=== PATIENT | female | born 1940 | race Caucasian/White ===

== ENCOUNTER → 2016-12-20 | Outpatient (CLI) | payer MEDICARE, OTHER ==
[2016-12-20 08:34] LABS: CHLORIDE,CL 109 mmol/L (98-110); SODIUM,NA 143 mmol/L (136-146)
== END ==
LOC: MW.CHIM 07:49
PROVIDERS: ATTEND Internal Medicine
DX: I10 Essential (primary) hypertension (principal)
CPT/HCPCS: 36415; 80053

== ENCOUNTER → 2016-12-24 | Outpatient (CLI) | payer MEDICARE, OTHER | LOC: MW.CHIM 09:30 | PROVIDERS: ATTEND Internal Medicine | DX: I10 Essential (primary) hypertension (principal) | CPT/HCPCS: 99214 ==

== ENCOUNTER 2017-01-12 08:06 | Emergency (ER) | payer MEDICARE, OTHER ==
--- NOTE | 2017-01-12 09:06 | EDM.PDOC ---
ED HPI Skin/Rash - General Stated Complaint: BUG BITE? Time Seen by Provider: 01/12/17 08:30 Source: Reports: Patient History Limitations: Reports: No limitations - History of Present Illness INITIAL COMMENTS - FREE TEXT/NARRATIVE: HISTORY AND PHYSICAL: History of present illness: [76-year-old female several days status post suspected spider bite right forearm. Patient states it initially had very mild swelling and itching and now has improved with resolution swelling and no more itching patient looked online and was concerned because she got the impression on Information was suggesting that she was bitten by a black spider patient is currently asymptomatic and a small red area at the bite site is improving. No fevers chills sweats or shaking chills] Review of systems: As per history of present illness and below otherwise all systems reviewed and negative. Past medical history: As per history of present illness and as reviewed below otherwise noncontributory. Surgical history: As per history of present illness and as reviewed below otherwise noncontributory. Social history: No reported history of drug or alcohol abuse. Family history: As per history of present illness and as reviewed below otherwise noncontributory. Physical exam: Smiling well-appearing patient perfectly groomed and in no acute distress. 1 cm discolored area right side of right distal forearm. No erythema warmth fluctuance crepitus. Nontender. Normal painless range of motion her wrist elbow. Soft compartments. No induration. Findings completely consistent with nearly resolved spider bite sequelae HEENT: Normocephalic, atraumatic, pupils normal and symmetrical, supple neck, no meningismus, normal color Lungs: Normal and symmetrical chest wall excursion bilateral with no tachypnea or increased work of breathing, grossly normal chest exam Heart: No tachycardia in triage Abdomen: Normal-appearing, nondistended, no visible mass or asymmetry Pelvis: Normal-appearing Genitourinary: Deferred Rectal exam: Deferred Extremities: Atraumatic, normal use and range of motion, no visible evidence of gross neurovascular compromise . Neuro: Awake, alert, oriented. Normal and appropriate mental status. Cranial nerves grossly unremarkable. Motor function normal. Nonfocal neurologic exam. Diagnostics: [] Therapeutics: [] Impression: [] Plan: [Signs and symptoms consistent with spider bite, local reaction, tetanus up-to- date, no further workup or treatment indicated. Patient agrees with outpatient followup. Strict return precautions given.] Definitive disposition and diagnosis as appropriate pending reevaluation and review of above. - Related Data Allergies Allergy/AdvReac Type Severity Reaction Status Date / Time shellfish derived Allergy Nausea Verified 01/12/17 08:14 Home Meds: Ambulatory Orders Medication Instructions Recorded Confirmed Doxazosin [Cardura] 2 mg PO DAILY 09/18/15 09/18/15 Enalapril [Vasotec] 5 mg PO 09/18/15 09/18/15 Hydrochlorothiazide 25 mg PO DAILY 09/18/15 09/18/15 Past Medical History Cardiovascular History: Reports: Hypertension Genitourinary History: Reports: None - Past Surgical History Female Surgical History: Reports: Hysterectomy Dermatological Surgical History: Reports: Skin biopsy Social & Family History - Family History Family Medical History: Noncontributory - Tobacco Use Smoking Status *Q: Never Smoker - Alcohol Use Days Per Week of Alcohol Use: 7 Number of Drinks Per Day: 2 Total Drinks Per Week: 14 - Recreational Drug Use Recreational Drug Use: No ED ROS GENERAL - Review of Systems Review Of Systems: See Below (Per history of present illness) ED EXAM, SKIN/RASH Exam: See Below (Per history of present illness) Course - Vital Signs Last Recorded V/S: Last Vital Signs Temp 36.4 C 01/12/17 08:14 Pulse 72 01/12/17 08:14 Resp 18 01/12/17 08:14 BP 190/82 H 01/12/17 08:14 Pulse Ox 95 01/12/17 08:14 Departure - Departure Time of Disposition: 09:02 Disposition: Home, Self-Care 01 Condition: good Clinical Impression: Spider bite, Insect bite of right forearm with local reaction Referrals: PCP,None [Primary Care Provider] - Additional Instructions: You have a spider bite with local reaction. Local reaction means that them of the spider cause inflammation at the site. This is what caused itching initially which is now improved. The reaction similar to a bee sting. There is no sign of systemic allergy and findings suggest local reaction only. Your tetanus is up-to-date and has any question about this verify with your Dr. Take Motrin and Tylenol as needed for soreness at the aware you may have some residual soreness in the area while the local effects continue to resolve. Return immediately for signs of evolving infection new severe or worsening symptoms.
[2017-01-12 09:21] VITALS: BP 184/78
== END 2017-01-12 09:15 | disposition home or self-care (01) ==
LOC: MW.ED 08:06
DX: S50.861A Insect bite (nonvenomous) of right forearm, initial encounter (principal); I10 Essential (primary) hypertension; Z91.013 Allergy to seafood; Z79.899 Other long term (current) drug therapy; Z90.710 Acquired absence of both cervix and uterus; W57.XXXA Bitten or stung by nonvenomous insect and other nonvenomous arthropods, initial encounter
CPT/HCPCS: 99281; 99282

== ENCOUNTER 2019-03-08 20:52 | Emergency (ER) | payer MEDICARE, OTHER ==
--- NOTE | 2019-03-08 20:59 | EDM.PDOC ---
ED HPI GENERAL MEDICAL PROBLEM - General Stated Complaint: HEAD INJURY Time Seen by Provider: 03/08/19 20:54 - History of Present Illness INITIAL COMMENTS - FREE TEXT/NARRATIVE: HISTORY AND PHYSICAL: History of present illness: Patient's an 78-year-old white female presents status post fall in which he sustained a head injury with a scalp laceration is no loss of consciousness no nausea no vomiting she denies chest pain dizziness shortness of breath or other concern she denies neck pain or trauma she is on aspirin she denies other anticoagulants or antiplatelet medicine Review of systems: As per history of present illness and below otherwise all systems reviewed and negative. Past medical history: As per history of present illness and as reviewed below otherwise noncontributory. Surgical history: As per history of present illness and as reviewed below otherwise noncontributory. Social history: No reported history of drug or alcohol abuse. Family history: As per history of present illness and as reviewed below otherwise noncontributory. Physical exam: HEENT: Patient has a laceration approximately 4 cm moderate depth noted at the apex of her gout normocephalic, pupils reactive, negative for conjunctival pallor or scleral icterus, mucous membranes moist, throat clear, neck supple, nontender, trachea midline. Lungs: Clear to auscultation, breath sounds equal bilaterally, chest nontender. Heart: S1S2, regular, negative for clicks, rubs, or JVD. Abdomen: Soft, nondistended, nontender. Negative for masses or hepatosplenomegaly. Negative for costovertebral tenderness. Pelvis: Stable nontender. Genitourinary: Deferred. Rectal: Deferred. Extremities: Atraumatic, negative for cords or calf pain. Neurovascular unremarkable. Neuro: Awake, alert, oriented. Cranial nerves II through XII unremarkable. Cerebellum unremarkable. Motor and sensory unremarkable throughout. Exam nonfocal. Diagnostics: CT brain Therapeutics: Wound was irrigated with copious amounts of 0.9 normal saline and closed with stainless steel feliciano bacitracin was applied Impression: #1 head injury with scalp laceration Definitive disposition and diagnosis as appropriate pending reevaluation and review of above. - Related Data Allergies Allergy/AdvReac Type Severity Reaction Status Date / Time shellfish derived Allergy Nausea Verified 03/08/19 21:05 Home Meds: Home Meds Doxazosin [Cardura] 2 mg PO DAILY 09/18/15 [History] Enalapril [Vasotec] 5 mg PO DAILY 09/18/15 [History] Hydrochlorothiazide 25 mg PO DAILY 09/18/15 [History] Aspirin 81 mg PO DAILY 03/08/19 [History] buPROPion [Wellbutrin] 75 mg PO BEDTIME 03/08/19 [History] Past Medical History Cardiovascular History: Reports: Hypertension Genitourinary History: Reports: None - Past Surgical History Dermatological Surgical History: Reports: Skin Biopsy Social & Family History - Family History Family Medical History: Noncontributory ED ROS GENERAL - Review of Systems Review Of Systems: ROS reveals no pertinent complaints other than HPI. ED EXAM, GENERAL - Physical Exam Exam: See Below (The dictation) Course - Vital Signs Last Recorded V/S: Last Vital Signs Temp 37.1 C 03/08/19 21:06 Pulse 72 03/08/19 21:06 Resp 17 03/08/19 21:06 BP 147/61 H 03/08/19 21:06 Pulse Ox 96 03/08/19 21:06 - Orders/Labs/Meds Meds: Medications Discontinued Medications Generic Name Dose Route Start Last Admin Trade Name Deuce PRN Reason Stop Dose Admin Bupivacaine HCl Confirm 03/08/19 21:41 Sensorcaine-Mpf 0.5% Administered 03/08/19 21:42 Dose 10 ml .ROUTE .STK-MED ONE Departure - Departure Time of Disposition: 22:45 Disposition: Home, Self-Care 01 Condition: Good Clinical Impression: Head injury, Scalp laceration - Discharge Information Additional Instructions: The following information is given to patients seen in the emergency department who are being discharged to home. This information is to outline your options for follow-up care. We provide all patients seen in our emergency department with a follow-up referral. The need for follow-up, as well as the timing and circumstances, are variable depending upon the specifics of your emergency department visit. If you don't have a primary care physician on staff, we will provide you with a referral. We always advise you to contact your personal physician following an emergency department visit to inform them of the circumstance of the visit and for follow-up with them and/or the need for any referrals to a consulting specialist. The emergency department will also refer you to a specialist when appropriate. This referral assures that you have the opportunity for followup care with a specialist. All of these measure are taken in an effort to provide you with optimal care, which includes your followup. Under all circumstances we always encourage you to contact your private physician who remains a resource for coordinating your care. When calling for followup care, please make the office aware that this follow-up is from your recent emergency room visit. If for any reason you are refused follow-up, please contact the [facility] emergency department at and asked to speak to the emergency department charge nurse. Head injury instructions as discussed follow-up private medical doctor as discussed deformable 10-14 days return as needed as discussed
--- NOTE | 2019-03-08 21:29 | CT ---
INDICATION: HISTORY COMPARISON: None available. TECHNIQUE: CT examination of the head was performed with 3 mm thick axial sections without intravenous contrast. Images were obtained from the vertex of the skull through the skull base, and I examined the images with the brain and bone windows. Please note that all CT scans at this facility use dose modulation, iterative reconstruction, and/or weight-based dosing when appropriate to reduce radiation dose to as low as reasonably achievable. FINDINGS: : There is mild soft tissue swelling in the right high mid parietal region with a small subperiosteal hematoma. There is no sign of injury to the underlying skull or brain. The brain is normal in appearance for the patient`s age on today`s study, with no sign of mass lesion, mass effect, hemorrhage, or edema. There is mild dilatation of the ventricles and sulci representing age-appropriate atrophy. There is mild periventricular and subcortical white matter hypodensity from age appropriate small vessel ischemia. The visualized portions of the orbits are normal in appearance status post cataract surgery. There is opacification of a right posterior ethmoid air cell from mild chronic sinusitis. The rest of the visualized portions of the paranasal sinuses and mastoids are clear. The osseous structures are normal in their appearance with no sign of abnormality in the skull base or calvarium. IMPRESSION: Mild soft tissue swelling in the right high mid parietal region with a small subperiosteal hematoma. No sign of injury to the underlying skull or brain. No sign of closed-head injury. Normal appearance of the brain for the patient`s age with mild, age-appropriate atrophy and small-vessel ischemic changes. Please note that all CT scans at this facility use dose modulation, iterative reconstruction, and/or weight-based dosing when appropriate to reduce radiation dose to as low as reasonably achievable. Dictated by Lucian Montoya MD @ Mar 08 2019 9:25PM Signed by Dr. Lucian Montoya @ Mar 08 2019 9:28PM
[2019-03-08] MEDS ORDERED: Bupivacaine 0.5% 10 ML SDV ONE (21:41)
[2019-03-08 22:56] VITALS: BP 116/56
== END 2019-03-08 22:56 | disposition home or self-care (01) ==
LOC: MW.ED 20:52
DX: S01.01XA Laceration without foreign body of scalp, initial encounter (principal); S09.90XA Unspecified injury of head, initial encounter; I10 Essential (primary) hypertension; Z91.013 Allergy to seafood; Z79.82 Long term (current) use of aspirin; Z79.899 Other long term (current) drug therapy; W18.39XA Other fall on same level, initial encounter
CPT/HCPCS: 12002; 70450; 70450-26; 99283; 99283-25

== ENCOUNTER 2020-12-31 21:37 | Emergency (ER) | payer MEDICARE, OTHER ==
--- NOTE | 2020-12-31 22:22 | EDM.PDOC ---
ED HPI GENERAL MEDICAL PROBLEM - General Chief Complaint: Skin Complaint Stated Complaint: SORE ON LIP BLEEDING Time Seen by Provider: 12/31/20 22:04 - History of Present Illness INITIAL COMMENTS - FREE TEXT/NARRATIVE: History of present illness: [] The patient has a bleeding lesion on the left lower lip. She has had it for a long time but slightly bled a lot and the family was very upset about the amount of blood in her home. The patient dabs at it to get it to stop intermittently. I find the patient putting a gauze on it and then removing gauze frequently. The patient had the lesion for a long time and she picks at i t and that causes of the start bleeding but usually is able to be stopped by pressure. 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 The patient is not on a blood thinner and does not bruise easily by history. She is not dizzy or orthostatic tonight. Review of systems: As per history of present illness and below otherwise all systems reviewed and negative. Past medical history: As per history of present illness and as reviewed below otherwise noncontributory. Surgical history: As per history of present illness and as reviewed below otherwise noncontributory. Social history: No reported history of drug or alcohol abuse. Family history: As per history of present illness and as reviewed below otherwise noncontributory. Physical exam: Constitutional - well developed, well-nourished and in no acute distress HEENT -patient has a small lesion on the mucosa near the vermilion border in the left lower lip just lateral to the midline. It is actively be bleeding but not pressed. Normocephalic, no evidence of trauma - external nose and mouth normal - no mass in neck and no JVD - mucosae moist EYES - full EOM, PERRL, no icterus - no evidence of inflammation, injection, or drainage Respiratory - no respiratory distress, equal bilateral expansion Musculoskeletal no gross deformity of long bones or joints - no tenderness, swelling or edema Neurologic - Alert and oriented times four - CN II-XII grossly intact - motor sensory and coordination symmetrically normal Psychiatric - appropriate mood and affect with normal thought content Hematologic - No petechiae or purpura - mucosa appropriate color and sclera not pale - Integument - no rash or evidence of trauma - normal turgor Diagnostics: [] Therapeutics: [] Impression: [] Plan: [] Definitive disposition and diagnosis as appropriate pending reevaluation and review of above. 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 ED EXAM, SKIN/RASH Exam: See Below Text/Narrative:: My physical exam is in the HPI Course - Vital Signs Text/Narrative:: 2309 hrs. lesion cauterized successfully and then doused with bacitracin amply and she is given the tube to put it on the area frequently and keep it moist. Patient tolerated the procedure well Last Recorded V/S: Last Vital Signs Temp 36.8 C 12/31/20 22:04 Pulse 82 12/31/20 22:04 Resp 18 12/31/20 22:04 BP 147/66 H 12/31/20 22:04 Pulse Ox - Orders/Labs/Meds Meds: Medications Discontinued Medications Generic Name Dose Route Start Last Admin Trade Name Deuce PRN Reason Stop Dose Admin Bacitracin 1 gm 12/31/20 22:27 12/31/20 22:58 Bacitracin Oint 28.35 Gm Tube TOP 12/31/20 22:28 1 applic STAT STA Administration Lidocaine HCl 2 ml 12/31/20 22:24 12/31/20 23:00 Lidocaine 2% Jelly 30 Ml Tube MUCMEM 12/31/20 22:25 1 applic STAT STA Administration Silver Nitrate 1 each 12/31/20 22:25 12/31/20 23:00 Silver Nitrate Applicator Each TOP 12/31/20 22:26 1 each ONETIME ONE Administration Departure - Departure Time of Disposition: 23:15 Disposition: Home, Self-Care 01 Condition: Good Clinical Impression: Lesion of lip - Discharge Information Referrals: Bulmaro Izaguirre MD [Primary Care Provider] - David Copeland MD [Ordering Only Provider] - Forms: ED Department Discharge Additional Instructions: Keep this moist with some sort of lubricant. Do not pick the scab off if there 1 develop. Do not pick the bump if there is one. See the software development advisor and have this biopsied and see if it is sun related skin cancer. Dr. David Copeland - [employer] [facility] [address] [place] [address], [address] [place] [address] The following information is given to patients seen in the emergency department who are being discharged to home. This information is to outline your options for follow-up care. We provide all patients seen in our emergency department with a follow-up referral. The need for follow-up, as well as the timing and circumstances, are variable depending upon the specifics of your emergency department visit. If you don't have a primary care physician on staff, we will provide you with a referral. We always advise you to contact your personal physician following an emergency department visit to inform them of the circumstance of the visit and for follow-up with them and/or the need for any referrals to a consulting specialist. The emergency department will also refer you to a specialist when appropriate. This referral assures that you have the opportunity for follow-up care with a specialist. All of these measure are taken in an effort to provide you with optimal care, which includes your follow-up. Under all circumstances we always encourage you to contact your private physician who remains a resource for coordinating your care. When calling for follow-up care, please make the office aware that this follow-up is from your recent emergency room visit. If for any reason you are refused follow-up, please contact the [facility] Emergency Department at and asked to speak to the emergency department charge nurse. Sepsis Event Note (ED) - Evaluation Sepsis Screening Result: No Definite Risk - Focused Exam Vital Signs: Vital Signs Temp Pulse Resp BP 12/31/20 22:04 36.8 C 82 18 147/66 H
[2020-12-31] MEDS ORDERED: Lidocaine 2% Jelly 30 ML Tube MUCMEM STA (22:24)
[2020-12-31] MEDS ORDERED: Silver Nitrate Applicator Each TOP ONE (22:25)
[2020-12-31] MEDS ORDERED: Bacitracin Oint 28.35 GM Tube TOP STA (22:27)
[2020-12-31 23:37] VITALS: BP 134/78; PULSE 73
== END 2020-12-31 23:38 | disposition home or self-care (01) ==
LOC: MW.ED 21:37
DX: K13.0 Diseases of lips (principal); I10 Essential (primary) hypertension; Z79.82 Long term (current) use of aspirin; Z79.899 Other long term (current) drug therapy; Z91.013 Allergy to seafood
CPT/HCPCS: 99283; A9270

== ENCOUNTER 2022-09-09 21:26 | Emergency (ER) | payer MEDICARE, OTHER ==
[2022-09-09] MEDS ORDERED: Octyl 2-Cyanoacrylate 1 g/1 mL 1 APPLIC PEN TOP ONE (21:38)
[2022-09-09] MEDS ORDERED: Octyl 2-Cyanoacrylate 1 g/1 mL 1 APPLIC PEN ONE (21:39)
[2022-09-09 22:24] VITALS: BP 105/71; PULSE 91
== END 2022-09-09 22:24 | disposition home or self-care (01) ==
LOC: MW.ED 21:26
DX: S01.501A Unspecified open wound of lip, initial encounter (principal); I10 Essential (primary) hypertension; Z91.013 Allergy to seafood; Z79.899 Other long term (current) drug therapy
CPT/HCPCS: 12011; 99282; 99283

== ENCOUNTER 2023-07-23 17:12 | Emergency (ER) | payer MEDICARE, OTHER ==
[2023-07-23] MEDS ORDERED: Morphine 4 MG/ML Syringe IVPUSH ONE (17:57)
[2023-07-23] MEDS ORDERED: Ondansetron 4 MG/2 ML SDV IVPUSH ONE (17:59)
[2023-07-23 18:19] LABS: BASOPHILS ABSOLUTE AUTO 0.03 K/uL (0.00-0.20); BASOPHILS PERCENT AUTO 0.3 % (0.0-1.0); EOSINOPHILS ABSOLUTE AUTO 0.15 K/uL (0.00-0.45); EOSINOPHILS PERCENT AUTO 1.7 % (0.0-6.0); HEMATOCRIT 39.7 % (37.0-47.0); HEMOGLOBIN 13.8 g/dL (12.0-16.0); IMMATURE GRAN ABSOLUTE AUTO 0.03 K/uL (0.00-0.05); IMMATURE GRAN PERCENT AUTO 0.3 % (0.0-0.4); LYMPHOCYTES ABSOLUTE AUTO 1.19 K/uL (1.00-4.80); LYMPHOCYTES PERCENT AUTO 13.5 % (24.0-44.0); MEAN CORPUSCULAR HEMOGLOBIN 32.7 pg (28.0-32.0); MEAN CORPUSCULAR HGB CONC 34.8 g/dL (32.0-36.0); MEAN CORPUSCULAR VOLUME 94.1 fL (83.0-99.0); MEAN PLATELET VOLUME 9.3 fL (9.4-12.3); MONOCYTES ABSOLUTE AUTO 0.56 K/uL (0.00-0.80); MONOCYTES PERCENT AUTO 6.4 % (0.0-8.0); NEUTROPHILS ABSOLUTE AUTO 6.84 K/uL (1.80-7.70); NEUTROPHILS PERCENT AUTO 77.8 % (41.0-71.0); PLATELET COUNT,PLT 268 K/uL (150-400); RED BLOOD CELL COUNT 4.22 M/uL (4.10-5.30)
[2023-07-23 18:44] LABS: BILIRUBIN TOTAL 0.5 mg/dL (0.2-1.0); CALCIUM 9.5 mg/dL (8.5-10.1); CREATININE 0.7 mg/dL (0.6-1.0); EST CRCL DRUG DOSING (CG) 42.2 mL/min; POTASSIUM,K 3.4 mmol/L (3.5-5.1); PROTEIN TOTAL,TP 7.9 g/dL (6.4-8.2)
[2023-07-23] MEDS ORDERED: Ketorolac 30 MG/ML SDV IVPUSH ONE (19:48)
[2023-07-23] MEDS ORDERED: Lidocaine 4% 1 each Patch TOP STA (19:48)
[2023-07-23] MEDS ORDERED: traMADol 50 MG Tab PO ONE (19:48)
[2023-07-23 21:04] VITALS: BP 161/77; PULSE 79
== END 2023-07-23 20:16 | disposition home or self-care (01) ==
LOC: MW.ED 17:12
DX: M25.511 Pain in right shoulder (principal); I10 Essential (primary) hypertension; Z90.710 Acquired absence of both cervix and uterus; Z79.82 Long term (current) use of aspirin; Z79.899 Other long term (current) drug therapy; Z87.891 Personal history of nicotine dependence; Z91.013 Allergy to seafood
CPT/HCPCS: 36415; 73030; 80053; 84484; 85025; 93005; 96374; 96375; 99284; A9270; J1885; J2270; J2405

== ENCOUNTER 2023-09-16 13:42 | Emergency (ER) | payer MEDICARE, OTHER ==
[2023-09-16 14:27] VITALS: PULSE 83
[2023-09-16 14:39] LABS: BASOPHILS ABSOLUTE AUTO 0.03 K/uL (0.00-0.20); BASOPHILS PERCENT AUTO 0.3 % (0.0-1.0); EOSINOPHILS ABSOLUTE AUTO 0.05 K/uL (0.00-0.45); EOSINOPHILS PERCENT AUTO 0.5 % (0.0-6.0); HEMATOCRIT 41.9 % (37.0-47.0); HEMOGLOBIN 13.8 g/dL (12.0-16.0); IMMATURE GRAN ABSOLUTE AUTO 0.05 K/uL (0.00-0.05); IMMATURE GRAN PERCENT AUTO 0.5 % (0.0-0.4); LYMPHOCYTES ABSOLUTE AUTO 0.93 K/uL (1.00-4.80); LYMPHOCYTES PERCENT AUTO 8.7 % (24.0-44.0); MEAN CORPUSCULAR HEMOGLOBIN 31.9 pg (28.0-32.0); MEAN CORPUSCULAR HGB CONC 32.9 g/dL (32.0-36.0); MEAN PLATELET VOLUME 9.8 fL (9.4-12.3); MONOCYTES ABSOLUTE AUTO 0.69 K/uL (0.00-0.80); MONOCYTES PERCENT AUTO 6.4 % (0.0-8.0); NEUTROPHILS ABSOLUTE AUTO 8.96 K/uL (1.80-7.70); NEUTROPHILS PERCENT AUTO 83.6 % (41.0-71.0); PLATELET COUNT,PLT 343 K/uL (150-400); RED BLOOD CELL COUNT 4.32 M/uL (4.10-5.30); WHITE BLOOD CELL COUNT,WBC 10.71 K/uL (3.9-11.3)
[2023-09-16 15:01] LABS: A/G RATIO 0.9 (0.9-1.6); ALBUMIN 3.9 g/dL (3.4-5.0); BILIRUBIN TOTAL 0.7 mg/dL (0.2-1.0); CALCIUM 9.7 mg/dL (8.5-10.1); CARBON DIOXIDE,CO2 27.3 mmol/L (21.0-32.0); CREATININE 0.9 mg/dL (0.6-1.0); EST CRCL DRUG DOSING (CG) 37.8 mL/min; POTASSIUM,K 3.5 mmol/L (3.5-5.1); PROTEIN TOTAL,TP 8.2 g/dL (6.4-8.2); URIC ACID 6.7 mg/dL (2.6-7.2)
[2023-09-16] MEDS ORDERED: Acetaminophen 325 MG Tab PO ONE (15:34)
[2023-09-16 15:44] VITALS: BP 131/50
== END 2023-09-16 15:47 | disposition home or self-care (01) ==
LOC: MW.ED 13:42
DX: S93.401A Sprain of unspecified ligament of right ankle, initial encounter (principal); I10 Essential (primary) hypertension; Z79.899 Other long term (current) drug therapy; Z79.82 Long term (current) use of aspirin; Z91.013 Allergy to seafood
CPT/HCPCS: 36415; 73610; 73630; 80053; 84550; 85025; 99283; A9270